=== PATIENT | male | born 1975 | race Caucasian/White ===

== ENCOUNTER 2024-09-22 17:49 | Inpatient (IN) | payer OTHER ==
[~2024-09-22] VITALS: Ht 182.9 cm; Wt 91.0 kg
[2024-09-22 18:09] VITALS: O2SAT 98
[2024-09-22] MEDS: ONDANSETRON HCL 4MG/2ML INJ IV STA (22:06)
[2024-09-22] MEDS: PANTOPRAZOLE SODIUM 40 MG/VIAL IV ONE (22:07)
[2024-09-22 22:21] LABS: BASOPHILS % 1.3 % (0.0-2.0); EOSINOPHILS % 2.1 % (0.0-5.0); HEMATOCRIT. 44.5 % (42.0-52.0); HEMOGLOBIN. 14.4 g/dL (14.0-18.0); LYMPHOCYTES % 29.6 % (20.0-50.0); MEAN CORPUSCULAR HEMOGLOBIN 28.6 pg (28.0-32.0); MEAN CORPUSCULAR HGB CONC 32.3 g/dL (31.0-37.0); MEAN CORPUSCULAR VOLUME 88.5 fL (80.0-94.0); MEAN PLATELET VOLUME 8.7 fl (7.4-10.4); MONOCYTES % 4.8 % (2.0-8.0); NEUTROPHILS % 62.2 % (40.0-76.0); PLATELET 439 x1000/uL (130-400); RED BLOOD CELL COUNT 5.03 mill/uL (4.7-6.1); RED CELL DISTRIBUTION WIDTH 20.5 % (11.6-14.6); WHITE BLOOD COUNT 10.3 x1000/uL (4.5-11.0)
[2024-09-22 22:26] LABS: PROTHROMBIN TIME 11.1 sec (9.6-11.0)
[2024-09-22 22:36] LABS: CARBON DIOXIDE 24 mEq/L (21-32); CHLORIDE 105 mEq/L (98-107); POTASSIUM 3.7 mEq/L (3.5-5.1); SODIUM 142 mEq/L (136-145)
[2024-09-22 22:37] LABS: CALCIUM 9.1 mg/dL (8.7-10.4)
[2024-09-22 22:41] LABS: CREATININE 0.7 mg/dL (0.6-1.3)
[2024-09-22 22:42] LABS: ETHANOL BLOOD 204 mg/dL (<10); GLUCOSE 105 mg/dL (70-105); UREA NITROGEN BLOOD 9 mg/dL (9-23)
[2024-09-22 22:43] LABS: ALANINE AMINOTRANSFERASE 130 IU/L (10-49); ASPARTATE AMINOTRANSFERASE 112 IU/L (<34)
[2024-09-22 22:44] LABS: ALBUMIN 4.3 g/dL (3.2-4.8); BILIRUBIN DIRECT 0.2 mg/dL (<=3.0); BILIRUBIN TOTAL 0.4 mg/dL (0.1-1.0); PROTEIN TOTAL 7.9 g/dL (6.0-8.3)
[2024-09-23] MEDS ORDERED: PHENOBARBITAL 30 MG TABLET PO PRN (04:00)
[2024-09-23] MEDS ORDERED: LORAZEPAM 1MG TABLET PO PRN ×3 (04:00)
[2024-09-23] MEDS ORDERED: DEXTROSE 50% WATER 50ML SYRINGE IV PRN (04:00)
[2024-09-23] MEDS ORDERED: HYDROCODONE/ACETAMINOPHEN 5/325MG TABLET PO PRN (04:00)
[2024-09-23] MEDS ORDERED: ONDANSETRON HCL 4MG/2ML INJ IV PRN (04:00)
[2024-09-23] MEDS ORDERED: CHLORDIAZEPOXIDE 25MG CAPSULE PO PRN (04:00)
[2024-09-23] MEDS ORDERED: MAGNESIUM/ALUMINUM HYDROXIDE/SIMETHICONE 30ML UDC PO PRN (04:00)
[2024-09-23] MEDS ORDERED: POTASSIUM CHLORIDE 20MEQ TABLET SR PO PRN (04:00)
[2024-09-23] MEDS ORDERED: DOCUSATE SODIUM 100MG CAPSULE PO PRN (04:00)
[2024-09-23] MEDS ORDERED: CLONIDINE 0.1MG TABLET PO PRN (04:00)
[2024-09-23] MEDS ORDERED: IPRATROPIUM/ALBUTEROL 0.5-3(2.5)MG/3ML NEB HHN PRN (04:00)
[2024-09-23] MEDS ORDERED: ACETAMINOPHEN 325MG TABLET PO PRN (04:00)
[2024-09-23 08:00] VITALS: BP 136/89; PULSE 88; RESP 20; TEMP 36.6696; O2SAT 100
[2024-09-23] MEDS: THIAMINE HCL 100 MG/1 ML 2ML VIAL IM SCH (09:00)
[2024-09-23] MEDS ORDERED: FOLIC ACID 1MG TABLET PO SCH (09:00)
[2024-09-23] MEDS: MULTIVITAMINS,THER W-MINERALS TABLET PO SCH (10:03)
[2024-09-23] MEDS: ENOXAPARIN 40MG/0.4ML SYR SUBCUT SCH (10:05)
[2024-09-23 12:00] VITALS: BP 109/71; PULSE 76; RESP 20; TEMP 36.61404; O2SAT 99
[2024-09-23] MEDS ORDERED: LORAZEPAM 2MG/ML INJ IV PRN (13:30)
[2024-09-23] MEDS ORDERED: CHLORDIAZEPOXIDE 25MG CAPSULE PO SCH (14:00)
[2024-09-24] MEDS ORDERED: FOLIC ACID 1MG TABLET PO SCH (09:00)
== END 2024-09-23 15:08 | disposition left against medical advice (07) | DRG 861 ==
LOC: ER 17:49 → EDBD 09-23 00:55 → 6WST 09-23 00:55 → EDBEDREQSVC 09-23 05:22
PROVIDERS: ADMIT Family Medicine Adult Medicine; ATTEND Family Medicine Adult Medicine
DX: R41.82 Altered mental status, unspecified (principal); Z53.29 Procedure and treatment not carried out because of patient's decision for other reasons; Z79.899 Other long term (current) drug therapy
CPT/HCPCS: 36415; 71045; 74176; 80048; 80076; 80320; 85025; 86850; 86900; 99285; J2405; J2470; J3411; G0480